=== PATIENT | female | born 1960 | race Caucasian/White ===

== ENCOUNTER 2016-09-13 12:06 | Emergency (ER) | payer OTHER ==
[2016-09-13 13:37] LABS: HEMOGLOBIN 13.6 gm/dl (12.3-15.3); RED BLOOD COUNT 3.97 M/UL (4.00-5.10); WHITE BLOOD COUNT 10.3 K/UL (4.5-11.0)
[2016-09-13 13:55] LABS: BUN/CREATININE RATIO 16 (0-10)
== END 2016-09-13 15:50 | disposition home or self-care (01) ==
LOC: ER1 12:06
PROVIDERS: Physician Assistant
DX: K43.9 Ventral hernia without obstruction or gangrene (principal); I51.9 Heart disease, unspecified; E11.9 Type 2 diabetes mellitus without complications; I10 Essential (primary) hypertension; Z95.1 Presence of aortocoronary bypass graft; Z95.5 Presence of coronary angioplasty implant and graft; F17.200 Nicotine dependence, unspecified, uncomplicated; Z88.1 Allergy status to other antibiotic agents; Z88.2 Allergy status to sulfonamides; Z95.0 Presence of cardiac pacemaker
CPT/HCPCS: 36415; 80053; 82150; 83690; 85025; 96374; 96375; 99283; J2270; J2405; J7050; Q9962

== ENCOUNTER 2016-10-14 01:14 | Emergency (ER) | payer OTHER | END 2016-10-14 01:28 | disposition left against medical advice (07) | LOC: ER1 01:14 | DX: Z53.21 Procedure and treatment not carried out due to patient leaving prior to being seen by health care provider (principal) ==

== ENCOUNTER → 2016-11-09 | Outpatient (CLI) | payer OTHER | LOC: KOH-I 10:38 | DX: R06.00 Dyspnea, unspecified (principal); R06.89 Other abnormalities of breathing; R06.2 Wheezing; J43.9 Emphysema, unspecified | CPT/HCPCS: 71020 ==

== ENCOUNTER → 2016-11-15 | Outpatient (CLI) | payer OTHER | LOC: KOH-I 08:00 | DX: N18.3 Chronic kidney disease, stage 3 (moderate) (principal) | CPT/HCPCS: 76775 ==

== ENCOUNTER → 2020-08-31 | Outpatient (CLI) | payer OTHER ==
[~2020-08-31] MED LIST: ASPIR 8181 MG PO; ASPIRIN325 MG PO; ATORVASTATIN CA20 MG PO; CARVEDILOL3.125 MG PO; GLUCOPHAGE XR500 M1 PO; GLUCOTROL5 MG PO; IMDUR ER TAB 6060 MG PO; LOPRESSOR100 MG PO; MEDROL4 MG PO; NITROGLYCERIN0.4 MG SL; NORVASC10 MG PO; PLAVIX 75 MG TA75 MG PO; RANEXA500 MG PO; SYNTHROID112 MCG PO; VIBRAMYCIN100 MG PO
== END ==
LOC: RAD 09:00
DX: T82.128A Displacement of other cardiac electronic device, initial encounter (principal); W19.XXXA Unspecified fall, initial encounter
CPT/HCPCS: 71046

== ENCOUNTER → 2020-10-06 | Outpatient (CLI) | payer OTHER ==
[2020-10-06 09:23] LABS: HEMOGLOBIN 14.3 gm/dl (12.3-15.3); RED BLOOD COUNT 4.28 M/UL (4.00-5.10); WHITE BLOOD COUNT 9.4 K/UL (4.5-11.0)
[2020-10-06 09:52] LABS: BUN/CREATININE RATIO 16 (0-10)
[2020-10-07 09:15] LABS: CREATININE, URINE 154.8 mg/dL (Not Estab.)
== END ==
LOC: LAB 08:05
PROVIDERS: Family Medicine
DX: F41.9 Anxiety disorder, unspecified (principal); N18.9 Chronic kidney disease, unspecified; E11.65 Type 2 diabetes mellitus with hyperglycemia; E78.5 Hyperlipidemia, unspecified
CPT/HCPCS: 36415; 80053; 80061; 82043; 82570; 84439; 84443; 84481; 85025

== ENCOUNTER 2022-02-23 15:34 | Emergency (ER) | payer OTHER ==
[~2022-02-23 15:34] MED LIST changes: -SYNTHROID112 MCG PO; +SYNTHROID150 MCG PO
[2022-02-23 16:56] LABS: HEMOGLOBIN 14.4 gm/dl (12.3-15.3); RED BLOOD COUNT 4.39 M/UL (4.00-5.10); WHITE BLOOD COUNT 11.9 K/UL (4.5-11.0)
[2022-02-24] MEDS ORDERED: PRALUENT PEN INJ (16:08)
[2022-02-24] MEDS ORDERED: KLONOPIN0.5 MG PO (16:08)
[2022-02-24] MEDS ORDERED: BUSPIRONE HCL15 MG PO (16:09)
[2022-02-24] MEDS ORDERED: CHOLESTYRAMINE P4 GM PO (16:09)
[2022-02-24] MEDS ORDERED: BACLOFEN10 MG PO (16:09)
[2022-02-24] MEDS ORDERED: ARTHRITIS PAIN50 GM TOP (16:10)
[2022-02-24] MEDS ORDERED: GLYBURIDE5 MG PO (16:11)
[2022-02-24] MEDS ORDERED: HYDROCHLOROTH12.5 M1 PO (16:11)
[2022-02-24] MEDS ORDERED: BYDUREON BCISE INJ (16:11)
[2022-02-24] MEDS ORDERED: POTASSIUM CHLO20 ME2 PO (16:12)
[2022-02-24] MEDS ORDERED: METFORMIN HCL1000 MG PO (16:12)
[2022-02-24] MEDS ORDERED: MONTELUKAST SOD10 MG PO (16:12)
[2022-02-24] MEDS ORDERED: HYDROXYZINE HCL25 MG PO (16:12)
[2022-02-24] MEDS ORDERED: QUETIAPINE FUMA50 MG PO (16:13)
[2022-02-24] MEDS ORDERED: TIZANIDINE HCL4 MG PO (16:13)
[2022-02-24] MEDS ORDERED: PRAVASTATIN SOD80 MG PO (16:13)
[2022-02-24] MEDS ORDERED: BROMPHENIR-PSE118 ML PO (16:14)
[2022-02-24] MEDS ORDERED: CYMBALTA60 MG PO (16:14)
[2022-02-24] MEDS ORDERED: ONDANSETRON HCL4 MG PO (16:14)
[2022-02-24] MEDS ORDERED: GABAPENTIN600 MG PO (16:15)
[2022-02-24] MEDS ORDERED: ASPIRIN EC81 MG PO (16:15)
== END 2022-02-24 17:30 | disposition other institution (70) ==
LOC: ER1 15:34
PROVIDERS: Physician Assistant
DX: N13.2 Hydronephrosis with renal and ureteral calculous obstruction (principal); R18.8 Other ascites; N17.9 Acute kidney failure, unspecified; F17.200 Nicotine dependence, unspecified, uncomplicated; I11.9 Hypertensive heart disease without heart failure; E11.9 Type 2 diabetes mellitus without complications; Z95.5 Presence of coronary angioplasty implant and graft; Z88.1 Allergy status to other antibiotic agents; Z88.2 Allergy status to sulfonamides
CPT/HCPCS: 51702; 80053; 81001; 82150; 82550; 82553; 83690; 84484; 85025; 87086; 93005; 96374; 96375; 96376; 99285; J1170; J2270; J2405